=== PATIENT | male | born 1990 | race Hispanic/Latino ===

== ENCOUNTER → 2023-01-25 | Outpatient (CLI) | payer OTHER ==
[2023-01-25 08:33] LABS: BASOPHILS % (AUTO) 0.6 % (0.0-5.0); EOSINOPHILS % (AUTO) 0.2 % (0.0-8.0); HEMATOCRIT 43.7 % (42-54); LYMPHOCYTES % (AUTO) 40.6 % (21.0-51.0); MEAN CORPUSCULAR HEMOGLOBIN 31.8 pg (27.0-33.0); MEAN CORPUSCULAR HGB CONC 33.9 g/dL (32.0-36.0); MONOCYTES % (AUTO) 7.3 % (3.0-13.0); NEUTROPHILS % (AUTO) 51.1 % (40.0-77.0); PLATELET COUNT (AUTO) 171 K/uL (130-400); RED BLOOD CELL COUNT(AUTO) 4.65 MIL/uL (4.50-6.20); RED CELL DISTRIBUTION WIDTH 12.3 % (11.0-15.5); WHITE BLOOD COUNT (AUTO) 6.5 K/uL (4.8-10.8)
[2023-01-25 08:50] LABS: HEMOGLOBIN A1C 5.9 % (4.0-6.0)
[2023-01-25 08:52] LABS: ALBUMIN 4.7 g/dL (3.5-5.0); CREATININE 0.8 mg/dL (0.5-1.5); POTASSIUM 3.8 mmol/L (3.5-5.1); TOTAL PROTEIN, SERUM 7.5 g/dL (6.0-8.3)
== END | disposition home or self-care (01) ==
LOC: LAB 08:04
PROVIDERS: ATTEND Internal Medicine
DX: Z13.220 Encounter for screening for lipoid disorders (principal); Z13.1 Encounter for screening for diabetes mellitus; I10 Essential (primary) hypertension; K21.9 Gastro-esophageal reflux disease without esophagitis; R53.83 Other fatigue
CPT/HCPCS: 36415; 80053; 80061; 82306; 83036; 84443; 84550; 85025

== ENCOUNTER 2023-02-19 21:52 | Emergency (ER) | payer OTHER ==
[~2023-02-19] VITALS: Ht 157.5 cm; Wt 87.1 kg
[2023-02-19 23:29] VITALS: BP 131/84
[2023-02-20] MEDS ORDERED: DIPH,PERTUSS(ACELL),TET VAC/PF 0.5 ML VIAL IM ONE
[2023-02-20] MEDS ORDERED: TETANUS/DIPHTHERIA TOXOID [ADULT] 0.5 ML VIAL IM ONE (00:30)
== END 2023-02-20 00:37 | disposition home or self-care (01) ==
LOC: EDH 21:52
DX: S00.81XA Abrasion of other part of head, initial encounter (principal); S09.8XXA Other specified injuries of head, initial encounter; I10 Essential (primary) hypertension; X58.XXXA Exposure to other specified factors, initial encounter; Y93.89 Activity, other specified; Y92.89 Other specified places as the place of occurrence of the external cause; Y99.8 Other external cause status
CPT/HCPCS: 70450; 90471; 90714

== ENCOUNTER → 2023-06-01 | Outpatient (CLI) | payer OTHER ==
[2023-06-01 08:27] LABS: BASOPHILS % (AUTO) 0.8 % (0.0-5.0); EOSINOPHILS % (AUTO) 0.1 % (0.0-8.0); HEMATOCRIT 42.9 % (42-54); LYMPHOCYTES % (AUTO) 50.1 % (21.0-51.0); MEAN CORPUSCULAR HEMOGLOBIN 31.5 pg (27.0-33.0); MEAN CORPUSCULAR VOLUME 92.7 fL (79-99); MONOCYTES % (AUTO) 5.2 % (3.0-13.0); NEUTROPHILS % (AUTO) 43.3 % (40.0-77.0); PLATELET COUNT (AUTO) 206 K/uL (130-400); RED BLOOD CELL COUNT(AUTO) 4.63 MIL/uL (4.50-6.20); RED CELL DISTRIBUTION WIDTH 11.9 % (11.0-15.5); WHITE BLOOD COUNT (AUTO) 7.3 K/uL (4.8-10.8)
[2023-06-01 08:28] LABS: APPEARANCE,URINE CLEAR (CLEAR); BILIRUBIN,URINE NEGATIVE (NEGATIVE); COLOR,URINE LIGHT-YELLOW (YELLOW); GLUCOSE, URINE (UA) NEGATIVE (NEGATIVE); KETONES,URINE NEGATIVE (NEGATIVE); LEUKOCYTE ESTERASE ,URINE NEGATIVE Leu/uL (NEGATIVE); NITRATE,URINE NEGATIVE (NEGATIVE); OCCULT BLOOD,URINE NEGATIVE (NEGATIVE); PH,URINE 5.5 (5.0-8.0); PROTEIN,URINE NEGATIVE (NEGATIVE); UROBILINOGEN,URINE 0.2 mg/dL (0.2-1.0)
[2023-06-01 08:47] LABS: HEMOGLOBIN A1C 5.8 % (4.0-6.0)
[2023-06-01 09:17] LABS: ALBUMIN 4.4 g/dL (3.5-5.0); BILIRUBIN,DIRECT 0.2 mg/dL (0.0-0.3); CREATININE 0.9 mg/dL (0.5-1.5); POTASSIUM 3.7 mmol/L (3.5-5.1); THYROID STIMULATING HORMONE 3.54 uIU/mL (0.36-3.74); TOTAL PROTEIN, SERUM 7.4 g/dL (6.0-8.3)
== END | disposition home or self-care (01) ==
LOC: LAB 07:47
PROVIDERS: ATTEND Internal Medicine
DX: Z13.1 Encounter for screening for diabetes mellitus (principal); Z13.220 Encounter for screening for lipoid disorders; Z13.29 Encounter for screening for other suspected endocrine disorder; R53.83 Other fatigue; I10 Essential (primary) hypertension
CPT/HCPCS: 36415; 80053; 80061; 80076; 81003; 82043; 82306; 82570; 82607; 83036; 84443; 85025

== ENCOUNTER → 2023-06-04 | Outpatient (CLI) | payer OTHER ==
[2023-06-04 21:46] VITALS: PULSE 72; RESP 30
[2023-06-04 22:30] VITALS: PULSE 62; RESP 20
[2023-06-04 23:00] VITALS: PULSE 62; RESP 10
[2023-06-04 23:30] VITALS: PULSE 62; RESP 16
[2023-06-05] VITALS (12 sets, daily range): PULSE 58–76; RESP 8–16
== END | disposition home or self-care (01) ==
LOC: SLP 08:32
PROVIDERS: ATTEND Internal Medicine
DX: G47.33 Obstructive sleep apnea (adult) (pediatric) (principal)
CPT/HCPCS: 95811

== ENCOUNTER → 2023-06-15 | Outpatient (CLI) | payer OTHER | END | disposition home or self-care (01) | LOC: LAB 15:24 | PROVIDERS: ATTEND Internal Medicine | DX: Z00.00 Encounter for general adult medical examination without abnormal findings (principal); K21.9 Gastro-esophageal reflux disease without esophagitis; G47.30 Sleep apnea, unspecified; R19.5 Other fecal abnormalities; R19.7 Diarrhea, unspecified | CPT/HCPCS: 36415; 82270; 82272; 83630; 87046; 87177; 87324; 87338 ==

== ENCOUNTER → 2023-06-28 | Outpatient (CLI) | payer OTHER ==
[2023-06-28 10:14] LABS: BASOPHILS # (AUTO) 0.06 K/uL (0.00-0.20); BASOPHILS % (AUTO) 0.8 % (0.0-5.0); EOSINOPHILS # (AUTO) 0.02 K/uL (0.00-0.70); EOSINOPHILS % (AUTO) 0.3 % (0.0-8.0); HEMATOCRIT 44.4 % (42-54); IMMATURE GRANULOCYTE ABSOLUTE 0.04 K/uL (0-1); LYMPHOCYTES # (AUTO) 3.2 K/uL (1.0-4.8); MEAN CORPUSCULAR HEMOGLOBIN 31.7 pg (27.0-33.0); MEAN CORPUSCULAR HGB CONC 34.2 g/dL (32.0-36.0); MEAN CORPUSCULAR VOLUME 92.7 fL (79-99); MONOCYTES # (AUTO) 0.5 K/uL (0.1-1.0); MONOCYTES % (AUTO) 6.5 % (3.0-13.0); NEUTROPHILS # (AUTO) 3.5 K/uL (1.8-7.7); NEUTROPHILS % (AUTO) 47.9 % (40.0-77.0); PLATELET COUNT (AUTO) 180 K/uL (130-400); RED BLOOD CELL COUNT(AUTO) 4.79 MIL/uL (4.50-6.20); RED CELL DISTRIBUTION WIDTH 11.9 % (11.0-15.5); WHITE BLOOD COUNT (AUTO) 7.4 K/uL (4.8-10.8)
[2023-06-28 10:39] LABS: ALANINE AMINOTRANSFERASE 125 U/L (12-78); ALBUMIN 4.3 g/dL (3.5-5.0); ASPARTATE AMINOTRANSFERASE 52 U/L (10-37); CARBON DIOXIDE 32 mmol/L (21-32); CHLORIDE 99 mmol/L (101-111); CREATININE 0.9 mg/dL (0.5-1.5); GLOMERULAR FILTR. RATE CALC 116 mL/min (>90); GLUCOSE,RANDOM 108 mg/dL (70-105); POTASSIUM 3.9 mmol/L (3.5-5.1); SODIUM SERUM 137 mmol/L (136-145); TOTAL PROTEIN, SERUM 7.5 g/dL (6.0-8.3); UREA NITROGEN, BLOOD 12 mg/dL (7-18)
[2023-06-28 10:58] LABS: CRP QUANTITATIVE < 2.00 mg/L (0.00-9.0)
[2023-06-28 13:23] LABS: ERYTHROCYTE SEDIMENTATION RATE 1 MM/HR (0-15)
== END | disposition home or self-care (01) ==
LOC: LAB 09:19
PROVIDERS: ATTEND Internal Medicine
DX: I10 Essential (primary) hypertension (principal); E55.9 Vitamin D deficiency, unspecified; G47.33 Obstructive sleep apnea (adult) (pediatric); K21.9 Gastro-esophageal reflux disease without esophagitis; R00.2 Palpitations; R07.89 Other chest pain
CPT/HCPCS: 36415; 80053; 83735; 84484; 85025; 85651; 86140

== ENCOUNTER → 2023-09-02 | Outpatient (CLI) | payer OTHER | END | disposition home or self-care (01) | LOC: RAH 08:11 | PROVIDERS: ATTEND Internal Medicine | DX: M54.12 Radiculopathy, cervical region (principal); M54.14 Radiculopathy, thoracic region | CPT/HCPCS: 72040; 72070 ==

== ENCOUNTER 2023-09-09 07:46 | Emergency (ER) | payer OTHER ==
[~2023-09-09] VITALS: Ht 160 cm; Wt 87.5 kg
[2023-09-09 08:56] LABS: BASOPHILS # (AUTO) 0.09 K/uL (0.00-0.20); BASOPHILS % (AUTO) 1.2 % (0.0-5.0); EOSINOPHILS # (AUTO) 0.02 K/uL (0.00-0.70); EOSINOPHILS % (AUTO) 0.3 % (0.0-8.0); HEMATOCRIT 42.6 % (42-54); IMMATURE GRANULOCYTE ABSOLUTE 0.03 K/uL (0-1); LYMPHOCYTES # (AUTO) 2.7 K/uL (1.0-4.8); LYMPHOCYTES % (AUTO) 35.9 % (21.0-51.0); MEAN CORPUSCULAR HGB CONC 34.5 g/dL (32.0-36.0); MEAN CORPUSCULAR VOLUME 92.6 fL (79-99); MONOCYTES # (AUTO) 0.5 K/uL (0.1-1.0); NEUTROPHILS # (AUTO) 4.2 K/uL (1.8-7.7); NEUTROPHILS % (AUTO) 56.2 % (40.0-77.0); PLATELET COUNT (AUTO) 168 K/uL (130-400); RED CELL DISTRIBUTION WIDTH 12.5 % (11.0-15.5); WHITE BLOOD COUNT (AUTO) 7.5 K/uL (4.8-10.8)
[2023-09-09 09:10] LABS: CREATININE 0.9 mg/dL (0.5-1.5); POTASSIUM 3.9 mmol/L (3.5-5.1)
[2023-09-09 09:15] LABS: ALBUMIN 4.3 g/dL (3.5-5.0); BILIRUBIN,TOTAL 0.6 mg/dL (0.2-1.0); TOTAL PROTEIN, SERUM 7.4 g/dL (6.0-8.3)
[2023-09-09] MEDS ORDERED: IBUP-2784 PO (09:21)
[2023-09-09 10:00] VITALS: BP 150/97; PULSE 74; RESP 18; O2SAT 96
== END 2023-09-09 10:03 | disposition home or self-care (01) ==
LOC: EDH 07:46
DX: I80.01 Phlebitis and thrombophlebitis of superficial vessels of right lower extremity (principal); I10 Essential (primary) hypertension
CPT/HCPCS: 36415; 80053; 85025; 85378; 93971

== ENCOUNTER → 2024-04-12 | Outpatient (CLI) | payer OTHER ==
[~2024-04-12] MED LIST: IBUP-2784 PO
[2024-04-12 08:22] LABS: BASOPHILS # (AUTO) 0.05 K/uL (0.00-0.20); BASOPHILS % (AUTO) 0.8 % (0.0-5.0); EOSINOPHILS # (AUTO) 0.02 K/uL (0.00-0.70); EOSINOPHILS % (AUTO) 0.3 % (0.0-8.0); HEMATOCRIT 42.4 % (42-54); IMMATURE GRANULOCYTE ABSOLUTE 0.01 K/uL (0-1); LYMPHOCYTES # (AUTO) 3.5 K/uL (1.0-4.8); LYMPHOCYTES % (AUTO) 53.5 % (21.0-51.0); MEAN CORPUSCULAR HEMOGLOBIN 31.5 pg (27.0-33.0); MEAN CORPUSCULAR HGB CONC 34.7 g/dL (32.0-36.0); MONOCYTES # (AUTO) 0.5 K/uL (0.1-1.0); MONOCYTES % (AUTO) 7.3 % (3.0-13.0); NEUTROPHILS # (AUTO) 2.5 K/uL (1.8-7.7); NEUTROPHILS % (AUTO) 37.9 % (40.0-77.0); PLATELET COUNT (AUTO) 170 K/uL (130-400); RED BLOOD CELL COUNT(AUTO) 4.66 MIL/uL (4.50-6.20); RED CELL DISTRIBUTION WIDTH 12.1 % (11.0-15.5); WHITE BLOOD COUNT (AUTO) 6.5 K/uL (4.8-10.8)
[2024-04-12 08:30] LABS: HEMOGLOBIN A1C 6.3 % (4.0-6.0)
[2024-04-12 08:31] LABS: ALANINE AMINOTRANSFERASE 100 U/L (12-78); ALBUMIN 3.9 g/dL (3.5-5.0); ASPARTATE AMINOTRANSFERASE 38 U/L (10-37); BILIRUBIN,TOTAL 0.8 mg/dL (0.2-1.0); CARBON DIOXIDE 30 mmol/L (21-32); CHLORIDE 103 mmol/L (101-111); CHOLESTEROL 190 mg/dL (<200); CREATININE 0.8 mg/dL (0.5-1.3); GLOMERULAR FILTR. RATE CALC 120 mL/min (>90); GLUCOSE,RANDOM 112 mg/dL (70-105); HDL CHOLESTEROL 46 mg/dL (29-71); LDL DIRECT 118 mg/dL (0-99); POTASSIUM 3.7 mmol/L (3.5-5.1); SODIUM SERUM 138 mmol/L (136-145); TOTAL PROTEIN, SERUM 6.7 g/dL (6.0-8.3); TRIGLYCERIDES 139 mg/dL (30-200); UREA NITROGEN, BLOOD 10 mg/dL (7-18)
[2024-04-12 09:28] LABS: ERYTHROCYTE SEDIMENTATION RATE 0 MM/HR (0-15)
== END | disposition home or self-care (01) ==
LOC: RAH 07:33
PROVIDERS: ATTEND Internal Medicine
DX: R10.11 Right upper quadrant pain (principal); K76.0 Fatty (change of) liver, not elsewhere classified; I10 Essential (primary) hypertension; G47.33 Obstructive sleep apnea (adult) (pediatric)
CPT/HCPCS: 36415; 76700; 80053; 80061; 83036; 85025; 85651; 86140

== ENCOUNTER → 2024-05-30 | Outpatient (CLI) | payer OTHER | END | disposition home or self-care (01) | LOC: RAH 13:38 | PROVIDERS: ATTEND Internal Medicine Cardiovascular Disease | DX: Z13.6 Encounter for screening for cardiovascular disorders (principal) | CPT/HCPCS: 75571 ==

== ENCOUNTER → 2024-07-28 | Outpatient (CLI) | payer OTHER ==
[2024-07-28 11:32] LABS: APPEARANCE,URINE CLEAR (CLEAR); BILIRUBIN,URINE NEGATIVE (NEGATIVE); COLOR,URINE LIGHT-YELLOW (YELLOW); GLUCOSE, URINE (UA) >=1000 mg/dL (NEGATIVE); KETONES,URINE NEGATIVE (NEGATIVE); LEUKOCYTE ESTERASE ,URINE NEGATIVE Leu/uL (NEGATIVE); NITRATE,URINE NEGATIVE (NEGATIVE); OCCULT BLOOD,URINE NEGATIVE (NEGATIVE); PH,URINE 5.5 (5.0-8.0); PROTEIN,URINE NEGATIVE (NEGATIVE); UROBILINOGEN,URINE 0.2 mg/dL (0.2-1.0)
[2024-07-28 11:39] LABS: ADD UA MICROSCOPIC YES
[2024-07-28 11:59] LABS: MUCUS,URINE RARE LPF (None Seen); RBC,URINE 0-1 /HPF (0-1); WBC,URINE 0-1 /HPF (0-1)
== END | disposition home or self-care (01) ==
LOC: RAH 07:59
PROVIDERS: ATTEND Internal Medicine
DX: K76.0 Fatty (change of) liver, not elsewhere classified (principal); R16.0 Hepatomegaly, not elsewhere classified; N32.89 Other specified disorders of bladder; K40.90 Unilateral inguinal hernia, without obstruction or gangrene, not specified as recurrent; M47.815 Spondylosis without myelopathy or radiculopathy, thoracolumbar region; I10 Essential (primary) hypertension; G47.33 Obstructive sleep apnea (adult) (pediatric); K52.9 Noninfective gastroenteritis and colitis, unspecified; R30.0 Dysuria; R73.01 Impaired fasting glucose
CPT/HCPCS: 36415; 74176; 81001; 83630; 87046; 87086; 87177; 87338

== ENCOUNTER → 2024-08-08 | Outpatient (CLI) | payer OTHER ==
[2024-08-08 12:18] LABS: BASOPHILS # (AUTO) 0.05 K/uL (0.00-0.20); BASOPHILS % (AUTO) 0.8 % (0.0-5.0); EOSINOPHILS # (AUTO) 0.03 K/uL (0.00-0.70); EOSINOPHILS % (AUTO) 0.5 % (0.0-8.0); HEMATOCRIT 44.8 % (42-54); IMMATURE GRANULOCYTE ABSOLUTE 0.02 K/uL (0-1); LYMPHOCYTES # (AUTO) 2.8 K/uL (1.0-4.8); LYMPHOCYTES % (AUTO) 46.5 % (21.0-51.0); MEAN CORPUSCULAR HEMOGLOBIN 32.3 pg (27.0-33.0); MEAN CORPUSCULAR VOLUME 92.2 fL (79-99); MONOCYTES # (AUTO) 0.4 K/uL (0.1-1.0); MONOCYTES % (AUTO) 6.9 % (3.0-13.0); NEUTROPHILS # (AUTO) 2.7 K/uL (1.8-7.7); PLATELET COUNT (AUTO) 146 K/uL (130-400); RED BLOOD CELL COUNT(AUTO) 4.86 MIL/uL (4.50-6.20); WHITE BLOOD COUNT (AUTO) 6.1 K/uL (4.8-10.8)
[2024-08-08 12:38] LABS: HEMOGLOBIN A1C 6.4 % (4.0-6.0)
[2024-08-08 13:04] LABS: ALBUMIN 3.8 g/dL (3.5-5.0); BILIRUBIN,TOTAL 0.7 mg/dL (0.2-1.0); CREATININE 0.9 mg/dL (0.5-1.3); POTASSIUM 3.8 mmol/L (3.5-5.1); THYROID STIMULATING HORMONE 1.3 uIU/mL (0.36-3.74); TOTAL PROTEIN, SERUM 6.7 g/dL (6.0-8.3)
== END | disposition home or self-care (01) ==
LOC: LAB 11:47
PROVIDERS: ATTEND Internal Medicine
DX: K75.81 Nonalcoholic steatohepatitis (NASH) (principal); M47.814 Spondylosis without myelopathy or radiculopathy, thoracic region; N44.2 Benign cyst of testis; N50.819 Testicular pain, unspecified; Z00.00 Encounter for general adult medical examination without abnormal findings; Z68.35 Body mass index [BMI] 35.0-35.9, adult
CPT/HCPCS: 36415; 80053; 80061; 83036; 84153; 84443; 85025

== ENCOUNTER → 2024-08-10 | Outpatient (CLI) | payer OTHER | END | disposition home or self-care (01) | LOC: RAH 14:38 | PROVIDERS: ATTEND Internal Medicine | DX: N44.2 Benign cyst of testis (principal); N50.819 Testicular pain, unspecified | CPT/HCPCS: 76870 ==

== ENCOUNTER → 2024-10-31 | Outpatient (CLI) | payer OTHER ==
--- NOTE | 2024-10-31 11:57 | HMCIMG ---
CT ABD/PEL WO CON RENAL/APPY REASON: ABD HERNIA COMPARISON: 07/28/2024 FINDINGS: Lung bases are clear. There is moderate hepatic steatosis. There are no focal liver lesions.. There are normal-appearing kidneys.. Spleen and pancreas appear unremarkable. The gallbladder appears normal as well. Bowel loops appear unremarkable. This includes normal appearance of the appendix There is no evidence of free fluid or intraperitoneal air. There are no focal fluid collections. Aorta and retroperitoneum appear normal as do pelvic soft tissue structures. The anterior abdominal wall is intact. There is no evidence of umbilical hernia or other hernia. There are no visible focal masses. Osseous structures appear unremarkable. IMPRESSION: 1. Moderate hepatic steatosis. 2. No acute finding, no evidence of umbilical hernia or mass. CT was performed with one or more following dose reduction techniques: automated exposure control, adjustment of the mA and kv according to patient's size, or use of a iterative reconstruction technique.
== END | disposition home or self-care (01) ==
LOC: RAH 10:00
PROVIDERS: ATTEND Internal Medicine
DX: K76.0 Fatty (change of) liver, not elsewhere classified (principal); K46.9 Unspecified abdominal hernia without obstruction or gangrene
CPT/HCPCS: 74176

== ENCOUNTER → 2024-11-20 | Outpatient (CLI) | payer OTHER ==
[~2024-11-20] MED LIST changes: +GADOTERATE MEGLUMINE 10 MMOL/20 ML VIAL IV ONE
[2024-11-20 09:07] LABS: ALBUMIN 3.8 g/dL (3.5-5.0); BILIRUBIN,TOTAL 0.5 mg/dL (0.2-1.0); CREATININE 0.7 mg/dL (0.5-1.3); TOTAL PROTEIN, SERUM 6.6 g/dL (6.0-8.3)
--- NOTE | 2024-11-20 15:39 | HMCIMG ---
MR ABDOMEN W/WO CON HISTORY: Left lower quadrant mass COMPARISON: CT from 10/31/2024 TECHNIQUE: MRI of the abdomen was performed utilizing multiple pulse sequences in axial, coronal and sagittal planes. Patient was given 19 cc of Clariscan through intravenous route. FINDINGS: No pleural effusion is seen bilaterally. Liver measures 19 cm. Spleen, adrenal glands and pancreas are unremarkable. No gallstone is seen in the gallbladder. Both kidneys are seen without hydronephrosis. There are motion artifacts degrading the image quality. No bowel obstruction is seen. No abnormal enhancement is seen. Common duct does not appear to be dilated. Common duct is not well visualized. IMPRESSION: 1. Liver parenchymal disease. Liver measures 19 cm which is enlarged in motion artifacts. No mass lesion or abnormal enhancement is seen.
--- NOTE | 2024-11-20 15:41 | HMCIMG ---
MR PELVIS W/WO CON HISTORY: No additional history given. COMPARISON: None TECHNIQUE: MRI of the pelvis was performed utilizing multiple pulse sequences in axial, coronal and sagittal planes. Patient was given 90 cc of Clariscan through intravenous route. FINDINGS: Both kidneys are seen without hydronephrosis. There is no evidence of pelvic adenopathy or ascites. Bladder is moderately distended. There is no evidence of pelvic adenopathy or ascites. IMPRESSION: 1. No evidence of pelvic adenopathy or ascites.
== END | disposition home or self-care (01) ==
LOC: RAH 11-16 11:28
PROVIDERS: ATTEND Internal Medicine
DX: R16.0 Hepatomegaly, not elsewhere classified (principal); K76.89 Other specified diseases of liver; I10 Essential (primary) hypertension; R19.04 Left lower quadrant abdominal swelling, mass and lump
CPT/HCPCS: 74183; 80053; 36415; 72197; A9575

== ENCOUNTER → 2024-12-07 | Outpatient (CLI) | payer OTHER ==
[~2024-12-07] MED LIST changes: -GADOTERATE MEGLUMINE 10 MMOL/20 ML VIAL IV ONE
--- NOTE | 2024-12-07 10:23 | HMCIMG ---
Superficial ultrasound left lower quadrant abdominal wall Clinical Information: Lipoma? Comparison: None Findings: No fluid collections or masses are seen. Significantly, there is no evidence of hematoma. No increased fluid throughout the visualized tissue planes is identified. No masses are seen. No lipoma. No lymphadenopathy is identified. Impression: No evidence of hematoma or fluid collections or other abnormalities. No evidence of lipoma.
== END | disposition home or self-care (01) ==
LOC: RAH 07:53
PROVIDERS: ATTEND Internal Medicine
DX: D17.1 Benign lipomatous neoplasm of skin and subcutaneous tissue of trunk (principal); R19.04 Left lower quadrant abdominal swelling, mass and lump
CPT/HCPCS: 76705

== ENCOUNTER → 2024-12-12 | Outpatient (CLI) | payer OTHER ==
[2024-12-12 08:48] LABS: BASOPHILS # (AUTO) 0.06 K/uL (0.00-0.20); EOSINOPHILS # (AUTO) 0.03 K/uL (0.00-0.70); EOSINOPHILS % (AUTO) 0.5 % (0.0-8.0); HEMATOCRIT 41.3 % (42-54); IMMATURE GRANULOCYTE ABSOLUTE 0.02 K/uL (0-1); LYMPHOCYTES % (AUTO) 47.5 % (21.0-51.0); MEAN CORPUSCULAR HEMOGLOBIN 32.3 pg (27.0-33.0); MEAN CORPUSCULAR HGB CONC 34.4 g/dL (32.0-36.0); MEAN CORPUSCULAR VOLUME 94.1 fL (79-99); MONOCYTES # (AUTO) 0.5 K/uL (0.1-1.0); MONOCYTES % (AUTO) 7.4 % (3.0-13.0); NEUTROPHILS # (AUTO) 2.7 K/uL (1.8-7.7); NEUTROPHILS % (AUTO) 43.3 % (40.0-77.0); PLATELET COUNT (AUTO) 155 K/uL (130-400); RED BLOOD CELL COUNT(AUTO) 4.39 MIL/uL (4.50-6.20); RED CELL DISTRIBUTION WIDTH 12.6 % (11.0-15.5); WHITE BLOOD COUNT (AUTO) 6.3 K/uL (4.8-10.8)
[2024-12-12 09:04] LABS: HEMOGLOBIN A1C 6.4 % (4.0-6.0)
[2024-12-12 09:29] LABS: ALBUMIN 3.7 g/dL (3.5-5.0); BILIRUBIN,TOTAL 0.3 mg/dL (0.2-1.0); CREATININE 0.9 mg/dL (0.5-1.3); POTASSIUM 3.9 mmol/L (3.5-5.1); THYROID STIMULATING HORMONE 3.42 uIU/mL (0.36-3.74); TOTAL PROTEIN, SERUM 6.5 g/dL (6.0-8.3)
== END | disposition home or self-care (01) ==
LOC: LAB 07:52
PROVIDERS: ATTEND Internal Medicine
DX: Z13.220 Encounter for screening for lipoid disorders (principal); Z13.1 Encounter for screening for diabetes mellitus; D17.9 Benign lipomatous neoplasm, unspecified; K75.81 Nonalcoholic steatohepatitis (NASH); R53.83 Other fatigue; N50.819 Testicular pain, unspecified
CPT/HCPCS: 36415; 80053; 80061; 83036; 84443; 84550; 85025

== ENCOUNTER → 2025-10-09 | Outpatient (CLI) | payer OTHER ==
[2025-10-09 15:56] LABS: ASPARTATE AMINOTRANSFERASE 45.0 U/L (10-37); CREATININE 0.8 mg/dL (0.5-1.3); GLOMERULAR FILTR. RATE CALC 119.0 mL/min (>90); GLUCOSE,RANDOM 150.0 mg/dL (70-105); LDL DIRECT 137.0 mg/dL (0-99); SODIUM SERUM 142.0 mmol/L (136-145); TOTAL PROTEIN, SERUM 7.0 g/dL (6.0-8.3); UREA NITROGEN, BLOOD 14.0 mg/dL (7-18)
== END | disposition home or self-care (01) ==
LOC: LAB 15:00
PROVIDERS: ATTEND Nurse Practitioner Acute Care
DX: I10 Essential (primary) hypertension (principal); E78.2 Mixed hyperlipidemia
CPT/HCPCS: 36415; 80053; 80061